=== PATIENT | female | born 1955 ===

== ENCOUNTER → 2020-05-13 | Emergency (ER) | payer OTHER ==
[~2020-05-13] VITALS: Ht 162.6 cm; Wt 75.7 kg
[~2020-05-13] MED LIST: ATACAND4 MG; GLUMETZA500 MG; PREVACID30 MG; SIMVASTATIN80 MG; TENORMIN50 M1
== END | disposition home or self-care (01) ==
LOC: ER 14:25
DX: R42 Dizziness and giddiness (principal)